=== PATIENT | male | born 1960 | race Two or more races ===

== ENCOUNTER 2019-04-13 10:30 | Outpatient (AMBR) | payer MEDICAID, SELFPAY ==
--- NOTE | 2019-03-22 11:57 | PT.ODS1RPT ---
PT OP Progress/Discharge Note Date of Service: March 22, 2019 Progress Note/DC Note Progress Note/Discharge Note: Progress Note Patient Information Visit Reasons: multiple fractures Medical Diagnosis: S22.42XD Treatment Dx #1: Left UE Weakness Treatment Dx #2: Left UE Pain Service Continue Service or Discharge: Continue Service Certification Date Certification Dates: 03/22/19 to 06/21/19 Status Subjective: Pt mention that he feels much better, however, continues to have left mid back pain with weakness in the shoulder. Pt still has limitation with lifting, recreational activities, and some of his ADLs. Pt will like to continueand finish his last 4 visits authorized by insurance. Objective: T/S AROM: all motions are WNL Scapula MMTs Middle Trape: 3+/5 Lower Trape: 3+/5 Serratus Ant: 3+/5 BUE AROM: all motions are WNL Left Shoulder MMTs: grossly 4-/5 Assessment: Pt demonstrate improvement of overall spinal mobility, however, continues to have weakness within the scapulohumeral musculatures leading to decline difficulty with lifting, recreational activities, and certain ADLs. Pt has not met set goals and will continue to benefit from physical therapy to increase shoulder stability and strength. Plan: Continue with PT and add 6 sessions (2 x wk for 3 wks) This patient will be transferred to [facility] as of 03/22/19 Office Procedures PT Procedures PT Date of Service: 03/22/19 Therapeutic Exercise 30 minutes: Yes
--- NOTE | 2019-03-29 16:00 | PT.ODAYNRPT ---
PT Outpatient Daily Note Date of Service: March 29, 2019 OP Daily Note Visit Reasons: multiple fractures Outpatient Physical Therapy Treatment Date: 03/29/19 Subjective: Pt mention that his upper trunk still ache. Pt has difficulty with lifting. Pt is doing okay today Objective: Please see flow chart for list of ther ex performed Assessment: tolerate exercises; decrease press due to complaint of left flank pain Plan: Continue with PT Length of Time (minutes) of Treatment: 30 Minutes Office Procedures PT Procedures PT Date of Service: 03/22/19 Therapeutic Exercise 30 minutes: Yes PT Procedures PT Date of Service: 03/29/19 Therapeutic Exercise 30 minutes: Yes
--- NOTE | 2019-04-08 13:29 | PT.ODAYNRPT ---
PT Outpatient Daily Note Date of Service: April 08, 2019 OP Daily Note Visit Reasons: multiple fractures Outpatient Physical Therapy Treatment Date: 04/08/19 Subjective: Pt. describes a little pain in scapula and mid back. Objective: Please refer to flow sheet for list of ther ex performed. Assessment: Pt. had some soreness in anterior ribs during body blade ther ex, but he was able to complete the ex. Tactile cueing necessary for proper technique. Plan: Continue PT per POC. Length of Time (minutes) of Treatment: 30 Minutes Office Procedures PT Procedures PT Date of Service: 04/08/19 Therapeutic Exercise 30 minutes: Yes PT Procedures PT Date of Service: 03/22/19 Therapeutic Exercise 30 minutes: Yes PT Procedures PT Date of Service: 03/29/19 Therapeutic Exercise 30 minutes: Yes
--- NOTE | 2019-04-11 11:55 | PT.ODAYNRPT ---
PT Outpatient Daily Note Date of Service: April 11, 2019 OP Daily Note Visit Reasons: multiple fractures Outpatient Physical Therapy Treatment Date: 04/11/19 Subjective: Pt feels good today; a little pain in the mid and shoulder blade Objective: Please see flow chart for list of ther ex performed Assessment: cues to correct body blade, punch, and scaption exercises today. Pt tolerate all exercises with minimal pain Plan: Continue with PT Length of Time (minutes) of Treatment: 30 Minutes Office Procedures PT Procedures PT Date of Service: 04/08/19 Therapeutic Exercise 30 minutes: Yes PT Procedures PT Date of Service: 03/22/19 Therapeutic Exercise 30 minutes: Yes PT Procedures PT Date of Service: 03/29/19 Therapeutic Exercise 30 minutes: Yes PT Procedures PT Date of Service: 04/11/19 Therapeutic Exercise 30 minutes: Yes
--- NOTE | 2019-04-13 16:31 | PT.ODS1RPT ---
PT OP Progress/Discharge Note Date of Service: April 13, 2019 Progress Note/DC Note Progress Note/Discharge Note: DC Note Patient Information Visit Reasons: multiple fractures Medical Diagnosis: S22.42XD Treatment Dx #1: Left UE Weakness Treatment Dx #2: Left UE Pain Service Continue Service or Discharge: Discharge Discharge Date: 04/13/19 Status Subjective: Pt mention that he is making progress but still has pain near the area where he fracture his ribs. Pt can perform normal ADLs, chores, self care, and lifting with less limitation. Objective: T/S AROM: all motions are WNL Scapula MMTs: grossly 4/5 BUE AROM: all motions are WNL BUE MMTs: grossly 4/5 Assessment: Pt demonstrate functional mobility and strength within his UE allowing him to resume normal ADLs with less limitation. Pt will no longer benefit from physical therapy due to meeting all set goals in therapy. Pt was instructed on HEP last session and educated to continue exercises to maintain overall mobility. Pt performed all exercises safely, thank you for your referrals. Plan: D/C home with HEP and follow up with PCP PRN Office Procedures PT Procedures PT Date of Service: 04/08/19 Therapeutic Exercise 30 minutes: Yes PT Procedures PT Date of Service: 03/22/19 Therapeutic Exercise 30 minutes: Yes PT Procedures PT Date of Service: 03/29/19 Therapeutic Exercise 30 minutes: Yes PT Procedures PT Date of Service: 04/11/19 Therapeutic Exercise 30 minutes: Yes PT Procedures PT Date of Service: 04/13/19 Therapeutic Exercise 30 minutes: Yes
== END 2019-04-18 23:59 | disposition home or self-care (01) ==
PROVIDERS: PCP Family Medicine; Referring Provider Family Medicine; Visit Provider Physician Assistant
DX: S22.42XD Multiple fractures of ribs, left side, subsequent encounter for fracture with routine healing (principal); R07.81 Pleurodynia; R53.1 Weakness; V89.2XXD Person injured in unspecified motor-vehicle accident, traffic, subsequent encounter
CPT/HCPCS: 97110

== ENCOUNTER 2024-10-17 12:50 | Day surgery (SDC) | payer MEDICAID, SELFPAY ==
[2024-10-14 14:37] VITALS: BMI 42.3
[2024-10-17] VITALS (11 sets, daily range): BP systolic 114–184; BP diastolic 80–103; PULSE 62–100; RESP 13–22; TEMP 36.2–37.1; O2SAT 96–100; BMI 33.3
[2024-10-17] MEDS: RINGERS LACTATED 1000 ML 1,000 ML 125 ML IV (15:20)
[2024-10-17] MEDS: fentaNYL CIT INJ 50 mCg/ML AMP 2ML (ASD USE ONLY) IV (15:33)
[2024-10-17] MEDS: MIDAZOLAM INJ 1 MG/ML VIAL 2 ML (ASD USE ONLY) 2 MG IV (15:38)
== END 2024-10-17 16:38 | disposition home or self-care (01) ==
PROVIDERS: PCP Family Medicine; Referring Provider Surgery; Visit Provider Surgery
PROC: 0DBE8ZX Excision of Large Intestine, Via Natural or Artificial Opening Endoscopic, Diagnostic (ICD-10-PCS; CPT 45380; principal; 2024-10-17 14:30)
DX: Z12.11 Encounter for screening for malignant neoplasm of colon (principal); I10 Essential (primary) hypertension; K57.30 Diverticulosis of large intestine without perforation or abscess without bleeding; E66.9 Obesity, unspecified; F41.9 Anxiety disorder, unspecified; Z79.899 Other long term (current) drug therapy; Z68.33 Body mass index [BMI] 33.0-33.9, adult
CPT/HCPCS: 45378; J2250; J3010; J7120